=== PATIENT | female | born 1985 | race Caucasian/White ===

== ENCOUNTER 2020-08-14 09:22 | Emergency (ER) | payer MEDICAID ==
[~2020-08-14] VITALS: Ht 157.5 cm; Wt 52.0 kg
[2020-08-14] MEDS ORDERED: ZIPRASIDONE 20 MG INJ IM ONE ×2 (09:48→10:00)
--- NOTE | 2020-08-14 09:52 | NUR ---
Pt agitated, stating she will amrita momin RN, security etc. security restrained wili right upper arm, left lower leg. Addendum: 08/14/20 at 1304 by [email or web address] correction. pt stated she would "kill" this RN, no amrita
--- NOTE | 2020-08-14 09:52 | NUR ---
while placing restraints, left wrist deformity and pain noted and ERP aware.
[2020-08-14] MEDS ORDERED: PLEASE ENTER HEIGHT AND WEIGHT MC SCH (10:00)
--- NOTE | 2020-08-14 10:03 | NUR ---
Pt agitated, refusing xray at this time.
[2020-08-14 10:24] LABS: BASOPHILS % (AUTO) 1 % (0-1); EOSINOPHILS % (AUTO) 1 % (1-7); LYMPHOCYTES % (AUTO) 21 % (22-44); MEAN CORPUSCULAR HEMOGLOBIN 32.6 pg (27.0-34.8); MEAN CORPUSCULAR HGB CONC 33.8 g/dL (32.4-35.8); MEAN PLATELET VOLUME 8.1 fL (7.4-10.4); MONOCYTES % (AUTO) 8 % (2-9); NEUTROPHILS % (AUTO) 69 % (42-75); PLATELET COUNT 232 x10^3/uL (130-400); RED BLOOD COUNT 4.06 x10^6/uL (3.82-5.3); RED CELL DISTRIBUTION WIDTH 13.3 % (9.6-15.2)
--- NOTE | 2020-08-14 10:26 | NUR ---
Spoke with patients brother. pt has been homeless and down and out, stayed in another apartment of the families last week. pt brothe rhas only seen her today and noticed her agitation and manic state. Antonio Mcpherson [phone]. Nephew: Shankar [phone].
[2020-08-14 10:32] LABS: MD NO
[2020-08-14 10:36] LABS: ALBUMIN 3.2 g/dL (3.4-5.0); ANION GAP 9 mmol/L (5-15); CALCIUM 9.2 mg/dL (8.5-10.1); CHLORIDE 107 mmol/L (98-107)
[2020-08-14 10:37] LABS: SALICYLATE LEVEL < 1.7 mg/dL (2.8-20.0)
[2020-08-14 10:41] LABS: ALANINE AMINOTRANSFERASE 22 U/L (12-78); ALKALINE PHOSPHATASE 40 U/L (45-117); BILIRUBIN,TOTAL 0.5 mg/dL (0.2-1.0); CREATININE 0.56 mg/dL (0.55-1.02); TOTAL PROTEIN 7.8 g/dL (6.4-8.2)
--- NOTE | 2020-08-14 10:46 | NUR ---
restraints removed, pt calm and cooperative. resting with eyes closed on right side. called xray to attempt again. given food.
--- NOTE | 2020-08-14 11:28 | NUR ---
xray at bedside. ekg completed
[2020-08-14] MEDS ORDERED: POTASSIUM CHLORIDE 20 MEQ TAB.ER.PRT PO ONE (11:30)
--- NOTE | 2020-08-14 11:40 | NUR ---
pt eating a sandwhich. coopertaive. drinking water. sitter in visualization.
[2020-08-14] MEDS ORDERED: PROPRANOLOL 10 MG TABLET PO PRN (12:30)
[2020-08-14] MEDS ORDERED: CITALOPRAM 20 MG TABLET ONE (12:34)
[2020-08-14] MEDS ORDERED: CARBAMAZEPINE 200 MG TABLET ONE ×2 (12:34→20:31)
[2020-08-14] MEDS ORDERED: POTASSIUM CHLORIDE 20 MEQ TAB.ER.PRT ONE (12:34)
[2020-08-14] MEDS: CITALOPRAM 20 MG TABLET PO SCH (12:47)
[2020-08-14] MEDS: CARBAMAZEPINE 200 MG TABLET PO SCH ×3 (12:47→21:00)
--- NOTE | 2020-08-14 12:59 | NUR ---
pt placed in sugar tong splint. no sling at this time/. Pt is agitated again, yet cooperative. "what the fuck you canelo martínez bittrev." Pt took all medications. Held on sling at this time due to agitation.
--- NOTE | 2020-08-14 13:01 | NUR ---
sitter outside room in direct visualization.
--- NOTE | 2020-08-14 14:12 | NUR ---
tech at bedside to attempt urine sample
[2020-08-14 15:15] LABS: AMPHETAMINE SCREEN, URINE Positive (Negative); BARBITURATE SCREEN, URINE Negative (Negative); BENZODIAZEPINE SCREEN, URINE Negative (Negative); CANNABINOID SCREEN, URINE Negative (Negative); COCAINE SCREEN, URINE Positive (Negative); METHADONE SCREEN, URINE Negative (Negative); OPIATE SCREEN, URINE Negative (Negative)
--- NOTE | 2020-08-14 15:20 | NUR ---
THROUGHPUT: PT ON LEGAL HOLD AND MEDICALLY CLEARED, FAXED LEGAL HOLD AND PACKET TO [facility], RECEIVED FAX CONFIRMATION.
--- NOTE | 2020-08-14 16:27 | NUR ---
sitter outside room. pt resting, even resp rate and effort.
--- NOTE | 2020-08-14 17:03 | NUR ---
pt given keli hernández outside room.
[2020-08-14] MEDS ORDERED: NICOTINE 14MG/24 HR PATCH.TD24 ONE (17:08)
[2020-08-14] MEDS: NICOTINE 14MG/24 HR PATCH.TD24 TD SCH (17:20)
--- NOTE | 2020-08-14 17:20 | NUR ---
pt in bed eating offered meal tray, denies need or discomfort at this time. pt noted to be slightly aggitated, rn in room with male accompaniment to administer ordered nictotine patch and propranolol. pt took medication without complication, returned to eating her lunch. pt requesting for visitors and to be discharged, this rn told pt that the question would be brought up to primary rn. pt in bed with sitter in doorway, no signs ot symptoms of acute distress noted respirations even and unlabored
--- NOTE | 2020-08-14 17:22 | NUR ---
THROUGHPUT: FAXED HOLD PACKET TO [facility], RECEIVED FAX CONFIRMATION
--- NOTE | 2020-08-14 17:48 | NUR ---
this rn spoke with Brent at [facility] regarding pt case. Brent states that she will review case with doctor then connect with this unit; further states that there is no RN on duty to receive pt until 2029 so the soonest they could accept pt at their facility is 2129.
--- NOTE | 2020-08-14 18:13 | NUR ---
THROUGHPUT: JEANETTE THOMAS
--- NOTE | 2020-08-14 18:46 | NUR ---
bedside report from Catalina CANTRELL, pt care transferred at this time.
--- NOTE | 2020-08-14 18:47 | NUR ---
pt resting on gurney, nad, appears comfortable, sitter in line of sight, room secured, even and unlabored respirations noted at this time, eyes closed. wctm. L2K
--- NOTE | 2020-08-14 19:37 | NUR ---
PT RESTING ON [place], NAD, PROVIDED SANDWICH AND SPRITE FOR COMFORT. PT TALKING TO SELF IN ROOM, SCRATCHING SKIN REGULARLY. PT DENIES ADDITIONAL NEEDS. WCTM. SITTER IN LINE OF SIGHT, ROOM SECURED.
--- NOTE | 2020-08-14 20:26 | NUR ---
PT RESTING ON [place], NAD, PROVIDED WATER FOR COMFORT. PT STILL TALKING TO SELF IN ROOM AND SCRATCHING SKIN REGULARLY. PT DENIES ADDITIONAL NEEDS. WCTM. SITTER IN LINE OF SIGHT, ROOM SECURED.
--- NOTE | 2020-08-14 21:44 | NUR ---
PT RESTING ON [place]. PT DENIES ADDITIONAL NEEDS. WCTM. SITTER IN LINE OF SIGHT, ROOM SECURED.
--- NOTE | 2020-08-14 22:02 | NUR ---
rn by room to ask pt if she needs anything. states "get the hell away". room secured, sitter in line of sight, pt standing in room, wctm. L2K
[2020-08-14] MEDS ORDERED: OLANZAPINE 10 MG INJ IM ONE (22:04)
[2020-08-14] MEDS: OLANZAPINE 10 MG INJ IM PRN (22:25)
--- NOTE | 2020-08-14 22:25 | NUR ---
PT UP AT DOOR OF ROOM YELLING AT SITTER STATING "I GET TO FUCKING LEAVE THE FUCDress Code DRILL HAND TOLD ME", "IM GONNA GET THE FUCK OUT OF THIS FUCKING BULLSHOT ASS PLACE ALL YOU SON OF BITCHES". PT REFUSING TO GO BACK TO ROOM, UNCOOPERATIVE WITH STAFF OR REDIRECTION, MEDICATED PER MAR. WCTM. ROOM SECURED, SITTER IN LINE OF SIGHT.
--- NOTE | 2020-08-14 22:49 | NUR ---
PT YELLING OUT FROM ROOM "GODDAMN YOU FUCKING BITCH, YOU PIECE OF SHIT, YOU CALL YOURSELF A FUCKING NURSE, LET ME TELL YOU ABOUT DIABETES, HARMONY AGUILA". LIGHTS DIMMED FOR PT COMFORT, SITTER IN LINE OF SIGHT, ROOM SECURED, WCTM. L2K
--- NOTE | 2020-08-14 23:49 | NUR ---
pt laying on gurney, eyes open, even and unlabored respirations noted, sitter in line of sight, room secure. pt calmer at this time. wctm. L2K
--- NOTE | 2020-08-15 00:42 | NUR ---
Break RN: patient sleeping in [facility]. Respirations even and unlabored. Room secured. Belongings locked in cabinet. Sitter outside.
--- NOTE | 2020-08-15 01:10 | NUR ---
PT NAD, RESTING WITH EYES CLOSED ON GURNEY, EVEN AND UNLABORED RESPIRATIONS, ROOM SECURED, SITTER IN LINE OF SIGHT, WCTM. L2K
--- NOTE | 2020-08-15 03:33 | NUR ---
pt resting on gurney, nad, eyes closed, even and unlabored respirations noted, appears comfortable, sitter in line of sight, room secured. wctm. L2K
--- NOTE | 2020-08-15 05:18 | NUR ---
pt resting on gurney, nad, appears comfortable, eyes closed, even and unlabored respirations noted, sitter in line of sight, room secured. wctm. L2K. hospital bed obtained to transfer pt to when awake.
--- NOTE | 2020-08-15 06:25 | NUR ---
pt resting on gurney, eyes closed, even and unlabored respirations, appears comfortable. pt nad, breakfast tray ordered, room secured, sitter in line of sight, wctm. L2K
--- NOTE | 2020-08-15 06:55 | NUR ---
report to fausto julian, pt care transferred at this time.
[2020-08-15] MEDS ORDERED: OLANZAPINE 10 MG INJ IM ONE (07:23)
[2020-08-15] MEDS: OLANZAPINE 10 MG INJ IM PRN (07:25)
--- NOTE | 2020-08-15 07:25 | NUR ---
PT extremely agitated and made attempt to leave. rehab aide and security notified. Pt administered PRN medication.
--- NOTE | 2020-08-15 07:46 | NUR ---
PT resting in bed, intermittent yelling. Safety precautions in place.
[2020-08-15] MEDS ORDERED: CARBAMAZEPINE 200 MG TABLET ONE (08:33)
[2020-08-15] MEDS ORDERED: CITALOPRAM 20 MG TABLET ONE (08:34)
[2020-08-15] MEDS ORDERED: NICOTINE 14MG/24 HR PATCH.TD24 ONE (08:34)
[2020-08-15] MEDS: NICOTINE 14MG/24 HR PATCH.TD24 TD SCH (08:41)
[2020-08-15] MEDS: CITALOPRAM 20 MG TABLET PO SCH (08:41)
[2020-08-15] MEDS: CARBAMAZEPINE 200 MG TABLET PO SCH (08:41)
[2020-08-15 11:11] VITALS: BP 120/78
--- NOTE | 2020-08-15 11:13 | NUR ---
Update provided to [facility]. pt resting in bed, safety precautions in place.
--- NOTE | 2020-08-15 11:37 | NUR ---
[facility] WILL ACCEPT, PER ÓSCAR SOSA
--- NOTE | 2020-08-15 11:53 | NUR ---
meal provided, safety precautions in place.
--- NOTE | 2020-08-15 13:24 | NUR ---
gave report to [facility]. belongings given to EMS
== END 2020-08-15 13:27 ==
LOC: ED 13:18
DX: S52.572A Other intraarticular fracture of lower end of left radius, initial encounter for closed fracture (principal); S52.512A Displaced fracture of left radial styloid process, initial encounter for closed fracture; F15.150 Other stimulant abuse with stimulant-induced psychotic disorder with delusions; R94.31 Abnormal electrocardiogram [ECG] [EKG]; F17.210 Nicotine dependence, cigarettes, uncomplicated; X58.XXXA Exposure to other specified factors, initial encounter; Y93.89 Activity, other specified; Y92.89 Other specified places as the place of occurrence of the external cause; Y99.8 Other external cause status
CPT/HCPCS: 29125; 36415; 80053; 80299; 80307; 80320; 80329; 84703; 85025; 93005; 96372; 99285; G0480